=== PATIENT | female | born 1980 | race Caucasian/White ===

== ENCOUNTER 2016-10-28 11:12 | Emergency (ER) | payer BC, OTHER ==
[~2016-10-28] VITALS: Ht 162.6 cm; Wt 108.9 kg
[2016-10-28] MEDS ORDERED: ONDANSETRON PF 4 MG/2 ML VIAL. IV PRN (11:30)
[2016-10-28] MEDS ORDERED: HYDROmorphone 2 MG/ML VIAL IV PRN (11:30)
[2016-10-28] MEDS ORDERED: IV NORMAL SALINE 1000ML BAG 1,000 ML IV ONE (11:30)
[2016-10-28] MEDS ORDERED: ONDA4TAB10 SL (11:34)
[2016-10-28] MEDS ORDERED: HYDR-2758 PO (11:34)
--- NOTE | 2016-10-28 11:34 | PHYS DOC ---
Past Medical History Past Medical History: Anxiety, Hypothyroid, UTI Past Surgical History: , Tubal ligation Alcohol Use: None Drug Use: None Adult General Chief Complaint Chief Complaint: ABDOMINAL PAIN HPI HPI 35-year-old female presenting to the emergency department with right lower quadrant abdominal pain. She describes the pain as a sharp pain that radiates from her flank into her groin. She recently finished a course of Macrobid. The pain is moderate intermittent started this morning around 6 AM and is without alleviating or exacerbating factors. Review of systems is negative for chest pain shortness of breath fevers chills cough. Positive for nausea with one episode of nonbilious nonbloody vomiting. All other review of systems is negative unless otherwise noted in history of present illness. ED course: 35-year-old female presenting with right lower quadrant abdominal pain. Triage vital signs showed the patient to be afebrile. Normal heart rate. Mildly elevated blood pressure. Pertinent physical exam findings showed a soft mildly tender abdomen in the right lower quadrant. Equivocal McBurney's point. Again Lee sign. Mild right CVA tenderness. Otherwise her exam is unremarkable. Labs were sent. CT the abdomen pelvis obtained. IV fluids nausea and pain medication given. Blood work shows mild nonspecific leukocytosis probably from resolving urinary tract infection. CT abdomen pelvis shows normal- appearing appendix with nephrolithiasis. I ordered the patient a 5 day course of Bactrim due to the involvement of the ureter and kidney. Otherwise it is likely the patient's nephrolithiasis will pass given the size. The patient was then discharged home in stable condition. The patient was then discharged home in stable condition to follow up with their primary care physician over the next 2-3 days. They were to return if their symptoms worsened or if they were concerned for any reason. [id number] discharge instructions and return precautions were given. Patient's questions were answered to their satisfaction. Patient is comfortable plan. Review of Systems Review of Systems SEE ABOVE. Current Medications Current Medications Current Medications Medications (Trade) Dose Ordered Sig/Katia Start Time Stop Time Status Last Admin Dose Admin Fentanyl Citrate (Fentanyl 2ml Vial) 25 mcg 1X PRN PRN 10/28/16 12:00 10/28/16 11:56 25 MCG Hydromorphone HCl (Dilaudid) 0.5 mg PRN Q1HR PRN 10/28/16 11:30 10/28/16 11:50 DC Ondansetron HCl (Zofran) 4 mg PRN Q30MIN PRN 10/28/16 11:30 10/28/16 11:41 4 MG Sodium Chloride 1,000 ml @ 1,000 mls/hr 1X ONCE 10/28/16 11:30 10/28/16 12:29 DC 10/28/16 11:41 1,000 MLS/HR Allergies Allergies Allergies Coded Allergies Type Severity Reaction Last Updated Verified Iodinated Contrast- Oral and IV Dye Allergy Intermediate Swelling 10/28/16 Yes Penicillins Allergy Intermediate 10/28/16 Yes hydromorphone Allergy Intermediate Rash 10/28/16 Yes Physical Exam Physical Exam SEE ABOVE Constitutional: Well developed, well nourished, no acute distress, non-toxic appearance. [] HENT: Normocephalic, atraumatic, bilateral external ears normal, oropharynx moist, no oral exudates, nose normal. [] Eyes: PERRLA, EOMI, conjunctiva normal, no discharge. [] Neck: Normal range of motion, no tenderness, supple, no stridor. [] Cardiovascular:Heart rate regular rhythm, no murmur [] Lungs & Thorax: Bilateral breath sounds clear to auscultation [] Abdomen: SEE ABOVE Skin: Warm, dry, no erythema, no rash. [] Back: No tenderness midline, pos for right CVA tenderness. [] Extremities: No tenderness, no cyanosis, no clubbing, ROM intact, no edema. [] Neurologic: Alert and oriented X 3, normal motor function, normal sensory function, no focal deficits noted. [] Psychologic: Affect normal, judgement normal, mood normal. [] Current Patient Data Vital Signs Vital Signs Date Time Temp Pulse Resp B/P (MAP) Pulse Ox O2 Delivery O2 Flow Rate FiO2 10/28/16 11:22 99.0 56 20 146/85 (105) 99 Room Air 99.0 Lab Values Laboratory Tests Test 10/28/16 11:40 10/28/16 11:50 10/28/16 12:40 White Blood Count 13.1 x10^3/uL (4.0-11.0) H Red Blood Count 4.30 x10^6/uL (3.50-5.40) Hemoglobin 13.7 g/dL (12.0-15.5) Hematocrit 39.5 % (36.0-47.0) Mean Corpuscular Volume 92 fL (79-100) Mean Corpuscular Hemoglobin 32 pg (25-35) Mean Corpuscular Hemoglobin Concent 35 g/dL (31-37) Red Cell Distribution Width 13.2 % (11.5-14.5) Platelet Count 330 x10^3/uL (140-400) Neutrophils (%) (Auto) 89 % (31-73) H Lymphocytes (%) (Auto) 7 % (24-48) L Monocytes (%) (Auto) 4 % (0-9) Eosinophils (%) (Auto) 0 % (0-3) Basophils (%) (Auto) 0 % (0-3) Neutrophils # (Auto) 11.7 x10^3uL (1.8-7.7) H Lymphocytes # (Auto) 0.9 x10^3/uL (1.0-4.8) L Monocytes # (Auto) 0.5 x10^3/uL (0.0-1.1) Eosinophils # (Auto) 0.0 x10^3/uL (0.0-0.7) Basophils # (Auto) 0.0 x10^3/uL (0.0-0.2) Sodium Level 143 mmol/L (136-145) Potassium Level 4.2 mmol/L (3.5-5.1) Chloride Level 108 mmol/L (98-107) H Carbon Dioxide Level 25 mmol/L (21-32) Anion Gap 10 (6-14) Blood Urea Nitrogen 17 mg/dL (7-20) Creatinine 1.2 mg/dL (0.6-1.0) H Estimated GFR (Cockcroft-Gault) 51.7 BUN/Creatinine Ratio 14 (6-20) Glucose Level 105 mg/dL (70-99) H Calcium Level 8.4 mg/dL (8.5-10.1) L Total Bilirubin 0.3 mg/dL (0.2-1.0) Aspartate Amino Transferase (AST) 17 U/L (15-37) Alanine Aminotransferase (ALT) 20 U/L (14-59) Alkaline Phosphatase 91 U/L (46-116) Total Protein 7.5 g/dL (6.4-8.2) Albumin 3.6 g/dL (3.4-5.0) Albumin/Globulin Ratio 0.9 (1.0-1.7) L Lipase 90 U/L (73-393) POC Urine HCG, Qualitative Hcg negative (Negative) Urine Collection Type Unknown Urine Color Yellow Urine Clarity Clear Urine pH 6.0 Urine Specific [place] 1.020 Urine Protein Negative mg/dL (NEG-TRACE) Urine Glucose (UA) Negative mg/dL (NEG) Urine Ketones (Stick) Negative mg/dL (NEG) Urine Blood Large (NEG) Urine Nitrite Negative (NEG) Urine Bilirubin Negative (NEG) Urine Urobilinogen Dipstick 0.2 mg/dL (0.2 mg/dL) Urine Leukocyte Esterase Negative (NEG) Urine RBC 6-10 /HPF (0-2) Urine WBC 1-4 /HPF (0-4) Urine Squamous Epithelial Cells Occ /LPF Urine Bacteria 0 /HPF (0-FEW) Urine Hyaline Casts Few /HPF Urine Mucus Mod /LPF Laboratory Tests 10/28/16 11:40 Laboratory Tests 10/28/16 11:40 EKG EKG [] Radiology/Procedures Radiology/Procedures [] Course & Med Decision Making Course & Med Decision Making Pertinent Labs and Imaging studies reviewed. (See chart for details) [] Dragon Disclaimer Dragon Disclaimer This electronic medical record was generated, in whole or in part, using a voice recognition dictation system. Departure Departure Impression: Primary Impression: Right lower quadrant abdominal pain Disposition: HOME, SELF-CARE Condition: STABLE Referrals: FLORA VEGAS MD (PCP) Patient Instructions: Abdominal Pain Additional Instructions: Thank you for allowing us to participate in your care today. Followup with your primary care physician in 3 days if your symptoms do not improve. Call your Primary Doctor tomorrow and inform them of your visit today. If you do not have a primary care provider you can ask for a list of our primary care providers. Return to the emergency department you have any new or concerning findings. This should be evaluated by the primary care physician and any necessary consulting services for continued management within a few days after discharge. Return to emergency room if you have any new or concerning symptoms including but not limited to fever, chills, nausea, vomiting, intractable pain, any new rashes, chest pain, shortness of air, uncontrolled bleeding, difficulty breathing, and/or vision loss. You may have been prescribed medication that can change in your level of thinking and ability to operate machinery. These medications include hydrocodone and Ativan. Also, Benadryl has been known to do this as well. Be sure to check with your pharmacist and ask if the medications you've prescribed can affect your level of consciousness. I recommend not operating heavy machinery or driving while on medication such as these. Scripts Sulfamethoxazole/Trimethoprim (BACTRIM DS TABLET) 1 Each Tablet 1 TAB PO BID, #10 TAB Prov: JON ORDOÑEZ MD 10/28/16 Hydrocodone Bit/Acetaminophen (HYDROCODONE-APAP 5-325 ) 1 Each Tablet 1 TAB PO PRN Q6HRS Y for PAIN, #15 TAB 0 Refills Be careful as this medication may cause you to be drowsy or tired. Do not drive on this medication. Prov: JON ORDOÑEZ MD 10/28/16 Ondansetron (ZOFRAN ODT) 4 Mg Tab.rapdis 1 TAB SL PRN Q8HRS Y for NAUSEA, #6 TAB Prov: JON ORDOÑEZ MD 10/28/16 JON ORDOÑEZ MD Oct 28, 2016 11:34
[2016-10-28 11:53] LABS: BASO % 0 % (0-3); EOS % 0 % (0-3); HEMATOCRIT 39.5 % (36.0-47.0); HEMOGLOBIN 13.7 g/dL (12.0-15.5); LYMPH # 0.9 x10^3/uL (1.0-4.8); LYMPH % 7 % (24-48); MEAN CORPUSCULAR HEMOGLOBIN 32 pg (25-35); MEAN CORPUSCULAR HGB CONC 35 g/dL (31-37); MEAN CORPUSCULAR VOLUME 92 fL (79-100); MONO % 4 % (0-9); NEUT % 89 % (31-73); PLATELET COUNT 330 x10^3/uL (140-400); RED CELL DISTRIBUTION WIDTH 13.2 % (11.5-14.5); WHITE BLOOD COUNT 13.1 x10^3/uL (4.0-11.0)
[2016-10-28] MEDS ORDERED: fentaNYL PF VIAL 100 MCG/2 ML VIAL IV PRN (12:00)
[2016-10-28 12:01] LABS: CALCIUM 8.4 mg/dL (8.5-10.1); CREATININE 1.2 mg/dL (0.6-1.0); GFR 51.7; POTASSIUM 4.2 mmol/L (3.5-5.1)
[2016-10-28 12:06] LABS: ALBUMIN 3.6 g/dL (3.4-5.0); ALBUMIN/GLOBULIN RATIO 0.9 (1.0-1.7); TOTAL BILIRUBIN 0.3 mg/dL (0.2-1.0); TOTAL PROTEIN 7.5 g/dL (6.4-8.2)
[2016-10-28 13:00] VITALS: BP 122/78
[2016-10-28 13:16] LABS: BILIRUBIN,URINE NEGATIVE (NEG); GLUCOSE,URINE NEGATIVE (NEG); NITRITE,URINE NEGATIVE (NEG); PROTEIN,URINE NEGATIVE (NEG-TRACE); UROBILINOGEN,URINE 0.2 mg/dL (0.2 mg/dL)
[2016-10-28 13:26] LABS: BACTERIA,URINE 0 /HPF (0-FEW); SQUAMOUS EPITHELIAL CELL,UR OCC /LPF
--- NOTE | 2016-10-28 13:42 | RAD ---
CT abdomen and pelvis without contrast. History: Right flank pain, right lower quadrant pain, history of stones CT scan of the abdomen pelvis was done without contrast. The lung bases are clear. There is no pleural effusion. A liver lesion is not identified. There is no calcified gallstone. Spleen and adrenal glands are normal. There is no definite pancreatic lesion. There is no left renal calculus. There is a punctate intrarenal calculus in the right kidney. There is perinephric stranding about the right kidney. A ureteral calculus is not identified. The patient may have passed a calculus, polynephritis could have this pattern. There is no bowel obstruction or ascites. Appendix is normal. There is a small cyst in the right ovary. Left ovary and uterus are normal. Impression: 1. Perinephric stranding about the right kidney and slight perinephric edema. The patient could have passed a calculus or a polynephritis could have this pattern. 2. Punctate calculus in the right kidney. 3. A ureteral calculus is not identified. 4. Normal appendix. One or more of the following individualized dose reduction techniques were utilized for this examination: 1. Automated exposure control 2. Adjustment of the mA and/or kV according to patient size 3. Use of iterative reconstruction technique
[2016-10-28] MEDS ORDERED: SULF1TAB24 PO (13:51)
== END 2016-10-28 14:05 | disposition home or self-care (01) ==
LOC: ER 11:12
DX: R10.31 Right lower quadrant pain (principal); R11.2 Nausea with vomiting, unspecified; R03.0 Elevated blood-pressure reading, without diagnosis of hypertension; D72.829 Elevated white blood cell count, unspecified; F41.9 Anxiety disorder, unspecified; E03.9 Hypothyroidism, unspecified; Z91.041 Radiographic dye allergy status; Z88.5 Allergy status to narcotic agent; Z87.440 Personal history of urinary (tract) infections; Z88.0 Allergy status to penicillin; Z98.51 Tubal ligation status
CPT/HCPCS: 36415; 74176; 80053; 81001; 81025; 83690; 85027; 96361; 96374; 96375; 99285; J2405; J3010; J7030

== ENCOUNTER → 2021-07-10 | Outpatient (CLI) | payer BC ==
[~2021-07-10] MED LIST: HYDR-2761 PO; ONDA4TAB10 SL; SULF1TAB24 PO
--- NOTE | 2021-07-10 16:29 | KCIC ---
STUDY: MRI left upper extremity without contrast INDICATION: Mass of the left trapezius. COMPARISON: CT of the neck 08/17/2020. TECHNIQUE: Multiplanar MR imaging centered on the left trapezius muscle to include the left shoulder and a portion of the cervical and thoracic spine. No contrast was administered. FINDINGS: Degraded study on account of patient motion in addition to the large obtained [id number]. The soft tissue supporting structures of the left shoulder are not fully evaluated Bones: No focally aggressive marrow signal abnormality. Maintained vertebral body height and alignmen t. There appears to be a disc osteophyte complex at C3-C4 with estimated mild central canal stenosis. No evidence for significant neural foraminal stenosis. No fracture, malalignment or marrow edema at the left shoulder. Musculotendinous: No localized fatty infiltration or atrophy. Considering motion in the absence of co ntrast no discrete mass within the trapezius. No findings to indicate a high-grade or full-thickness rotator cuff tear. Miscellaneous: No subcutaneous mass superficial to the trapezius or elsewhere. Axillary lymph nodes a re normal in size. IMPRESSION: 1. Degraded study on account of motion and secondary to the large obtained [id number]. 2. Taking the above into consideration, no mass within the left trapezius or within the adjacent soft tissues, as queried. 3. Suspected mild disc osteophyte complex at C3-C4 with estimated mild central canal stenosis noting only partial evaluation. Electronically signed by: LOLY PITTS MD (07/10/2021 4:26 PM) [id number]
== END ==
LOC: KCIC MRI 13:14
PROVIDERS: ATTEND Family Medicine
DX: M62.830 Muscle spasm of back (principal); M54.2 Cervicalgia
CPT/HCPCS: 73218